=== PATIENT | female | born 1970 | race Caucasian/White ===

== ENCOUNTER 2017-09-15 10:31 | Outpatient (CLI) | payer OTHER | END 2017-09-15 10:32 | disposition home or self-care (01) | LOC: BICMAMMO 10:31 | PROVIDERS: ATTEND Family Medicine | DX: Z13.820 Encounter for screening for osteoporosis (principal); Z00.00 Encounter for general adult medical examination without abnormal findings; M81.0 Age-related osteoporosis without current pathological fracture; M85.852 Other specified disorders of bone density and structure, left thigh | CPT/HCPCS: 77080 ==

== ENCOUNTER 2018-02-07 12:22 | Outpatient (CLI) | payer OTHER | END 2018-02-07 12:23 | disposition home or self-care (01) | LOC: BICRAD 12:22 | PROVIDERS: ATTEND Family Medicine | DX: M25.511 Pain in right shoulder (principal) ==

== ENCOUNTER 2018-02-25 13:23 | Outpatient (CLI) | payer OTHER | END 2018-02-25 13:24 | disposition home or self-care (01) | LOC: BICMRI 13:23 | PROVIDERS: ATTEND Family Medicine | DX: M25.511 Pain in right shoulder (principal); M75.101 Unspecified rotator cuff tear or rupture of right shoulder, not specified as traumatic ==

== ENCOUNTER 2018-10-27 08:52 | Outpatient (CLI) | payer OTHER ==
--- NOTE | 2018-10-27 09:21 | BD ---
EXAM: DEXA bone density examination HISTORY: 48-year-old postmenopausal female for screening COMPARISON: None FINDINGS: L1--bone mineral density 0.680 g/sq cm; T score -2.8 L2--bone mineral density 0.661 g/sq cm; T score -3.3 L3--bone mineral density 0.677 g/sq cm; T score -3.7 L4--bone mineral density 0.690 g/sq cm; T score -3.4 Total L1-L4--bone mineral density 0.678 g/sq cm; T score -3.4 Left femoral neck--bone mineral density0.633; T score -1.9 Total proximal left femur--bone mineral density 0.724; T score -1.8 IMPRESSION: Osteoporosis This patient has approximately an 8.5 times increased risk of fracture when compared with young patients with normal bone mineral density.
== END 2018-10-27 08:53 | disposition home or self-care (01) ==
LOC: BICMAMMO 08:52
PROVIDERS: ATTEND Obstetrics & Gynecology
DX: Z13.820 Encounter for screening for osteoporosis (principal); M81.0 Age-related osteoporosis without current pathological fracture
CPT/HCPCS: 77080

== ENCOUNTER 2018-12-20 10:22 | Outpatient (CLI) | payer OTHER ==
--- NOTE | 2018-12-20 11:14 | RAD ---
XR Ribs Lt>=2 View W/PA CXR History: [Anterior chest wall pain] Comparison: None. Findings: Lungs are clear. No pneumothorax or effusion. Mild scarring and fibrosis both lung apices. No displaced left rib fracture. Clavicles intact. Impression: No acute displaced fracture or malalignment. Clear lungs.
== END 2018-12-20 10:23 | disposition home or self-care (01) ==
LOC: BICRAD 10:22
PROVIDERS: ATTEND Obstetrics & Gynecology
DX: R07.89 Other chest pain (principal)

== ENCOUNTER 2022-02-03 09:34 | Outpatient (CLI) | payer OTHER | END 2022-02-03 09:35 | disposition home or self-care (01) | LOC: BICMAMMO 09:34 | PROVIDERS: ATTEND Obstetrics & Gynecology | DX: N64.4 Mastodynia (principal) | CPT/HCPCS: 77066; G0279 ==

== ENCOUNTER 2023-03-19 09:04 | Outpatient (CLI) | payer OTHER | END 2023-03-19 09:05 | disposition home or self-care (01) | LOC: BICMAMMO 09:04 | PROVIDERS: ATTEND Obstetrics & Gynecology | DX: Z12.31 Encounter for screening mammogram for malignant neoplasm of breast (principal); Z91.89 Other specified personal risk factors, not elsewhere classified | CPT/HCPCS: 77063; 77067 ==

== ENCOUNTER 2023-03-25 08:02 | Outpatient (CLI) | payer OTHER | END 2023-03-25 08:03 | disposition home or self-care (01) | LOC: BICMAMMO 08:02 | PROVIDERS: ATTEND Obstetrics & Gynecology | DX: N64.89 Other specified disorders of breast (principal) | CPT/HCPCS: G0279 ==

== ENCOUNTER 2023-05-04 08:13 | Outpatient (CLI) | payer OTHER | END 2023-05-04 08:14 | disposition home or self-care (01) | LOC: BICMAMMO 08:13 | PROVIDERS: ATTEND Obstetrics & Gynecology | DX: Z13.820 Encounter for screening for osteoporosis (principal); M81.0 Age-related osteoporosis without current pathological fracture; M85.851 Other specified disorders of bone density and structure, right thigh; M85.852 Other specified disorders of bone density and structure, left thigh | CPT/HCPCS: 77080 ==